=== PATIENT | male | born 1950 | race Caucasian/White ===

== ENCOUNTER 2016-10-31 13:19 | Emergency (ER) | payer MEDICAID, OTHER ==
[~2016-10-31] VITALS: Ht 167.6 cm; Wt 87.0 kg
[2016-10-31 13:23] VITALS: Ht 167.6 cm; Wt 87.0 kg
[2016-10-31] MEDS ORDERED: KETOROLAC 30 MG INJ IM STA (14:29)
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
[2016-10-31] MEDS ORDERED: ACETAMINOPHEN 325 MG TAB PO ONE (15:00)
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
[2016-10-31] MEDS ORDERED: NAPR-260 PO (15:34)
[2016-10-31 16:20] VITALS: BP 122/78; PULSE 80; RESP 18; TEMP 97.8
== END 2016-10-31 16:00 | disposition home or self-care (01) ==
LOC: FTE 13:19
DX: S29.001A Unspecified injury of muscle and tendon of front wall of thorax, initial encounter (principal); I10 Essential (primary) hypertension; R51 Headache; V49.49XA Driver injured in collision with other motor vehicles in traffic accident, initial encounter
CPT/HCPCS: 70450; 71010; 72125; 93005; Z7502; Z7610

== ENCOUNTER 2018-07-20 15:35 | Inpatient (IN) | payer BC, OTHER ==
[~2018-07-20] VITALS: Ht 167.6 cm; Wt 84.0 kg
[~2018-07-20 15:35] MED LIST: NAPR-985 PO
--- NOTE | 2018-07-20 17:46 | ERD ---
ER Documentation Chief Complaint Chief Complaint pressure like pain @ the left chest area x 3 days non radiating HPI This is a 68-year-old man complaining of intermittent pressure-like chest discomfort usually lasting about 15 minutes intermittently throughout the day x3 days with associated dizziness and some nausea. He denies prior episodes of chest pain, he has had no shortness of breath, no fevers or chills, no loss of consciousness, no anxiety, no headache or blurry vision. ROS All systems reviewed and are negative except as per history of present illness. Medications Home Meds Active Scripts Naproxen* (Naprosyn*) 500 Mg Tablet, 500 MG PO BID PRN for PAIN AND/OR I NFLAMMATION, #30 TAB Prov:MAGGI MARI PA-C 10/31/16 Allergies Allergies: Coded Allergies: No Known Allergy (Unverified , 10/31/16) PMhx/Soc Hypertension History of Surgery: No Anesthesia Reaction: No Hx Neurological Disorder: No Hx Respiratory Disorders: No Hx Cardiac Disorders: No Hx Psychiatric Problems: No Hx Miscellaneous Medical Probl: No Hx Alcohol Use: No Hx Substance Use: No Hx Tobacco Use: No FmHx Family History: No diabetes Physical Exam Vitals Vital Signs Date Temp Pulse Resp B/P (MAP) Pulse Ox O2 O2 Flow FiO2 Time Delivery Rate 07/20/18 61 16 141/101 100 Room Air 18:38 (114) 07/20/18 97.1 78 19 150/98 98 15:37 (115) Physical Exam GENERAL: Well-developed, well-nourished, well-hydrated, in no apparent distress, looks nontoxic in appearance NEURO: Alert and oriented 3, cranial nerves II through XII intact bilaterally, pupils equal round reactive to light, no focal deficits or facial asymmetry, sensation intact distally Strength 5/5 in upper and lower extremities bilaterally CARDIAC: Regular rate and rhythm, no murmurs rubs or gallops LUNGS: Clear bilaterally no wheezing crackles or stridor ABDOMEN: Soft nontender, no guarding, no rigidity, no rebound, no psoas sign no obturator sign. Normoactive bowel sounds SKIN: Warm and dry to touch, no abrasions, contusions, or hematomas, no lacerations, no ecchymosis, no target lesions, and without ulcers EXTREMITIES: No clubbing cyanosis or edema, calves are bilaterally symmetrical, no Homans sign, no popliteal cord sign. Distal pulses equal and bilateral PSYCH: Normal affect without agitation or irritability Result Diagram: 07/20/18181707/20/181817 Results 24 hrs Laboratory Tests Test 07/20/18 18:18 White Blood Count 7.8 10^3/ul Red Blood Count 5.04 10^6/ul Hemoglobin 15.6 g/dl Hematocrit 47.0 % Mean Corpuscular Volume 93.3 fl Mean Corpuscular Hemoglobin 31.0 pg Mean Corpuscular Hemoglobin Concent 33.2 g/dl Red Cell Distribution Width 12.3 % Platelet Count 266 10^3/UL Mean Platelet Volume 8.4 fl Immature Granulocytes % 0.600 % Neutrophils % 55.7 % Lymphocytes % 31.0 % Monocytes % 10.8 % Eosinophils % 1.4 % Basophils % 0.5 % Nucleated Red Blood Cells % 0.0 /100WBC Immature Granulocytes # 0.050 10^3/ul Neutrophils # 4.3 10^3/ul Lymphocytes # 2.4 10^3/ul Monocytes # 0.8 10^3/ul Eosinophils # 0.1 10^3/ul Basophils # 0.0 10^3/ul Nucleated Red Blood Cells # 0.0 10^3/ul Sodium Level 141 mmol/L Potassium Level 4.6 mmol/L Chloride Level 107 mmol/L Carbon Dioxide Level 25 mmol/L Anion Gap 9 Blood Urea Nitrogen 17 mg/dl Creatinine 1.23 mg/dl Est Glomerular Filtrat Rate mL/min 59 mL/min Glucose Level 92 mg/dl Calcium Level 9.1 mg/dl Total Bilirubin 0.2 mg/dl Direct Bilirubin 0.00 mg/dl Indirect Bilirubin 0.2 mg/dl Aspartate Amino Transf (AST/SGOT) 18 IU/L Alanine Aminotransferase (ALT/SGPT) 21 IU/L Alkaline Phosphatase 70 IU/L Troponin I < 0.012 ng/ml Total Protein 8.2 g/dl Albumin 4.4 g/dl Globulin 3.80 g/dl Albumin/Globulin Ratio 1.15 Lipase 165 U/L Current Medications Medications Dose Sig/Mariana Start Time Status Last (Trade) Ordered Route PRN Stop Time Admin Dose Reason Admin Sodium 500 ml @ Q1H STAT 07/20/18 DC 07/20/18 Chloride 500 mls/hr IV 17:55 18:32 07/20/18 18:54 Ketorolac 15 mg ONCE STAT 07/20/18 DC 07/20/18 Tromethamine IV 17:55 18:33 (Toradol) 07/20/18 17:56 Aspirin 324 mg ONCE ONCE 07/20/18 DC 07/20/18 (Aspirin) PO 18:00 18:33 07/20/18 18:01 Procedures/MDM IV line was established patient was placed on ekg monitor tech rhythm strip revealed a sinus rhythm at about 70 bpm with upright P and T waves. Patient was afebrile EKG performed, read by me: 73 bpm, normal sinus rhythm, normal axis, no acute ST segment changes, narrow QRS complex, with good R-wave progression in precordial leads. I administered 500 cc normal saline IV, Toradol 15 mg IV x1, and aspirin 324 mg p.o. for cardioprotective measures. Chest X-ray 1V Interpreted by me: Soft Tissue: No acute abnormalities Bones: No acute abnormalities Mediastinum/Cardiac Silhouette/Lungs: No acute abnormalities CBC and electrolytes are normal, liver function tests normal, troponin negative Patient will be admitted to telemetry setting for continued medical management cardiology consultation. Departure Diagnosis: Primary Impression: Chest pain Chest pain type: unspecified Qualified Codes: R07.9 - Chest pain, unspecified Condition: KINJAL Zheng MD July 20, 2018 17:46
[2018-07-20] MEDS ORDERED: KETOROLAC 15 MG INJ IV STA (17:55)
[2018-07-20] MEDS ORDERED: SOD CHLORIDE 0.9% 500 ML IV STA (17:55)
[2018-07-20] MEDS ORDERED: ASPIRIN 81 MG TAB PO ONE (18:00)
[2018-07-20] MEDS ORDERED: hydrALAzine 20 MG INJ IV PRN (19:30)
[2018-07-20] MEDS ORDERED: HYDROCODONE/APAP (5/325) TAB PO PRN (19:30)
[2018-07-20] MEDS ORDERED: NACL 0.9% 3 ML SYG IV SCH (19:30)
[2018-07-20] MEDS ORDERED: ALBUTEROL/IPRATROPIUM (NEB) 3 ML AMP HHN PRN (19:30)
[2018-07-20] MEDS ORDERED: MAGNESIUM HYDROXIDE 30ML CUP PO PRN (19:30)
[2018-07-20] MEDS ORDERED: morphine 2 MG INJ IV PRN (19:30)
[2018-07-20] MEDS ORDERED: NITROGLYCERIN (SL) 0.4 MG TAB SL PRN (19:30)
[2018-07-20] MEDS ORDERED: ACETAMINOPHEN 325 MG TAB PO PRN (19:30)
[2018-07-20] MEDS ORDERED: DOCUSATE SODIUM 100 MG CAP PO PRN (19:30)
[2018-07-20] MEDS ORDERED: LORAZEPAM 2 MG INJ IV PRN (19:30)
[2018-07-20] MEDS ORDERED: ONDANSETRON 4 MG INJ IV PRN (19:30)
--- NOTE | 2018-07-20 19:53 | HP ---
DATE OF ADMISSION: 07/20/2018 IDENTIFICATION: This is a 68-year-old male. CHIEF COMPLAINT: Chest pain. HISTORY OF PRESENT ILLNESS: A 68-year-old male with past medical history of hypertension who has bee n having left chest pain, substernal in nature actually radiating slightly to the midsternal area occ urring for the last 3 days. No nausea, vomiting, no fever or chills. He describes a pressure-like, substernal in nature. No prior history of any chest pain. No prior history of any stroke or heart a ttack. Denies any diarrhea or constipation. No fever or chills. No nausea, vomiting. No headaches or dizziness. No loss of consciousness. When he came in today, he was found with blood pressure of 164/98. First troponin is negative. PAST MEDICAL HISTORY: As stated above. ALLERGIES: NO KNOWN DRUG ALLERGIES. HOME MEDICATIONS: Apparently naproxen 500 mg p.o. b.i.d. He does state he takes blood pressure medi cine at home. He does not remember the name of it. PAST SURGICAL HISTORY: He had appendix surgery in the past. FAMILY HISTORY: Positive for stroke. Both mother had a stroke and father had a stroke, SOCIAL HISTORY: Negative for smoking, drinking or IV drug abuse. PHYSICAL EXAMINATION: VITAL SIGNS: Today, T-max 97.1, pulse 78 to 61, respirations 16 to 19, blood pressure 168 to 141 sys tolic over 98 to 101 diastolic, satting at 100% room air. GENERAL: The patient is lying in bed, answering questions appropriately, in no acute distress. HEENT: Pupils are equal, round, react to light. Extraocular muscles are intact. NECK: Supple. No thyromegaly. LUNGS: Slight crackles heard at the bases bilaterally. No wheezes. CARDIOVASCULAR: S1, S2 heard. No rubs or gallops. ABDOMEN: Soft, nontender, nondistended. Normal bowel sounds. No rebound or guarding. MUSCULOSKELETAL: Trace pitting edema to bilateral lower extremities to the ankles. NEUROLOGIC: No focal deficits. LABORATORIES: Comprehensive metabolic panel is normal. Troponin is negative x1. CBC is normal. DIAGNOSTIC DATA: Chest x-ray showed mild left basilar linear atelectatic changes. ASSESSMENT AND PLAN: A 68-year-old male coming in chest pain occurring for the last 3 days. Rule ou t acute coronary syndrome versus other source. 1. Chest pain. Rule out acute coronary syndrome versus musculoskeletal source. Admit the patient t o telemetry. Check troponins q.6 hours x2 more. Put him on aspirin, morphine, nitroglycerin and oxy gen. Check a 2D echocardiogram as well. Check TSH, A1c, lipid panel. 2. Hypertension. Again, blood pressure in the slightly elevated range. We will continue to monitor for now. Try to get patient's home medications for blood pressure that he takes at home. Continue hydralazine IV p.r.n. as well. 3. Deep venous thrombosis prophylaxis. Heparin subcutaneously. Dictated By: AYUSH NG Conf#: [id number] DID#: [id number]
[2018-07-20] MEDS: FUROSEMIDE 20 MG INJ IV SCH (20:33)
[2018-07-20 20:55] VITALS: BP 168/92; PULSE 67; RESP 18; Ht 167.6 cm; Wt 84.0 kg
[2018-07-20 21:25] VITALS: PULSE 72
[2018-07-20] MEDS: HEPARIN 5,000 UNIT/1 ML VIAL SC SCH (21:59)
[2018-07-21] VITALS (9 sets, daily range): BP systolic 121–132; BP diastolic 73–88; PULSE 63–73; RESP 18–20
[2018-07-21] MEDS ORDERED: ASPIRIN (EC) 325 MG TAB PO SCH (09:00)
[2018-07-21] MEDS: FUROSEMIDE 20 MG INJ IV SCH (09:05)
[2018-07-21] MEDS: HEPARIN 5,000 UNIT/1 ML VIAL SC SCH (09:22)
--- NOTE | 2018-07-21 10:01 | PDOCDIS ---
Discharge Instructions CONDITION [id number] Patient Condition: [id number] Stable HOME CARE INSTRUCTIONS: [id number] Diet Instructions: [id number] Low Fat /Cholesterol ACTIVITY: [id number] Activity Restrictions: [id number] Slowly Increase Activity Rest between Activity Avoid heavy lifting FOLLOW UP/APPOINTMENTS Follow-up Plan Please take your medications as prescribed, see your doctor in the clinic in the next 1 week. Please follow-up with the hospital phone number you will be provided to get the final results of your echocardiogram as well. AYUSH BONNER July 21, 2018 10:01
--- NOTE | 2018-07-21 10:04 | DS ---
Date/Time of Note Date/Time of Note DATE: 07/21/18 TIME: 10:02 Discharge Summary Admission/Discharge Info Admit Date/Time July 20, 2018 at 19:23 Discharge Date/Time Discharge Diagnosis 1. Chest pain. Ruled out acute coronary syndrome-echocardiogram performed, results pending 2. Hypertension-improved Patient Condition: Stable Hx of Present Illness 68-year-old male with past medical history of hypertension who has been having left chest pain, substernal in nature actually radiating slightly to the midsternal area occurring for the last 3 days. No nausea, vomiting, no fever or chills. He describes a pressure-like, substernal in nature. No prior history of any chest pain. No prior history of any stroke or heart attack. Denies any diarrhea or constipation. No fever or chills. No nausea, vomiting. No headaches or dizziness. No loss of consciousness. When he came in today, he was found with blood pressure of 164/98. First troponin is negative. Hospital Course Patient was admitted and he ruled out for acute coronary syndrome. His blood pressure improved with appropriate medications given while here in the hospital. His A1c was found to be 5.8, and although his triglycerides are slightly high, his overall cholesterol panel was within normal limits. He was recommended for diet modification to help control his slightly high triglyceride levels. Patient was able to ambulate, tolerated p.o. diet. Vital signs were stable on day of discharge. He had an echocardiogram performed results are still pending by the time of this discharge, but patient will follow up with that to get the results of that and will be discharged home today in improved condition. See below for full list of discharge medications. Home Meds Active Scripts Naproxen* (Naprosyn*) 500 Mg Tablet, 500 MG PO BID PRN for PAIN AND/OR INFLAMM ATION, #30 TAB Prov:MAGGI MARI PA-C 10/31/16 Follow-up Plan Please take your medications as prescribed, see your doctor in the clinic in the next 1 week. Please follow-up with the hospital phone number you will be provided to get the final results of your echocardiogram as well. Primary Care Provider Care Physician No Primary Time spent on discharge: > 30 minutes Pending Labs Laboratory Tests Test 07/20/18 18:18 07/20/18 19:50 07/21/18 01:12 07/21/18 05:17 White Blood 7.8 7.1 Count 10^3/ul (4.8-10 10^3/ul (4.8-1 .8) 0.8) Red Blood 5.04 4.92 Count 10^6/ul (4.70-6 10^6/ul (4.70- .10) 6.10) Hemoglobin 15.6 15.1 g/dl (14.0-18.0 g/dl (14.0-18. ) 0) Hematocrit 47.0 45.5 % (42.0-52.0) % (42.0-52.0) Mean 93.3 92.5 Corpuscular fl (82.0-101.0) fl (82.0-101.0 Volume ) Mean 31.0 30.7 Corpuscular pg (29.0-33.0) pg (29.0-33.0) Hemoglobin Mean 33.2 33.2 Corpuscular g/dl (32.0-37.0 g/dl (32.0-37. Hemoglobin Conc ) 0) ent Red Cell 12.3 12.4 Distribution % (11.5-14.5) % (11.5-14.5) Width Platelet Count 266 270 10^3/UL (140-41 10^3/UL (140-4 5) 15) Mean Platelet 8.4 8.4 Volume fl (7.4-10.4) fl (7.4-10.4) Immature 0.600 0.600 Granulocytes % % (0.001-0.429) % (0.001-0.429 ) Neutrophils % 55.7 58.7 % (39.0-77.0) % (39.0-77.0) Lymphocytes % 31.0 28.7 % (15.0-51.0) % (15.0-51.0) Monocytes % 10.8 9.7 % (0.0-11.0) % (0.0-11.0) Eosinophils % 1.4 % (0.0-7.0) 2.0 % (0.0-7.0) Basophils % 0.5 % (0.0-2.0) 0.3 % (0.0-2.0) Nucleated Red 0.0 0.0 Blood Cells % /100WBC (0.0-0. /100WBC (0.0-0 0) .0) Immature 0.050 0.040 Granulocytes # 10^3/ul (0.0-0. 10^3/ul (0.0-0 031) .031) Neutrophils # 4.3 4.2 10^3/ul (1.6-7. 10^3/ul (1.6-7 5) .5) Lymphocytes # 2.4 2.0 10^3/ul (0.8-2. 10^3/ul (0.8-2 9) .9) Monocytes # 0.8 0.7 10^3/ul (0.3-0. 10^3/ul (0.3-0 9) .9) Eosinophils # 0.1 0.1 10^3/ul (0.0-0. 10^3/ul (0.0-0 5) .5) Basophils # 0.0 0.0 10^3/ul (0.0-0. 10^3/ul (0.0-0 1) .1) Nucleated Red 0.0 0.0 Blood Cells # 10^3/ul (0.0-0. 10^3/ul (0.0-0 0) .0) Sodium Level 141 142 mmol/L (135-144 mmol/L (135-14 ) 4) Potassium 4.6 4.3 Level mmol/L (3.5-5.1 mmol/L (3.5-5. ) 1) Chloride Level 107 108 mmol/L (97-110) mmol/L (97-110 ) Carbon Dioxide 25 24 Level mmol/L (21-31) mmol/L (21-31) Anion Gap 9 (5-13) 10 (5-13) Blood Urea 17 mg/dl (7-20) 19 Nitrogen mg/dl (7-20) Creatinine 1.23 1.24 mg/dl (0.61-1.2 mg/dl (0.61-1. 4) 24) Est Glomerular 59 mL/min (>60) 58 Filtrat mL/min (>60) Rate mL/min Glucose Level 92 90 mg/dl (70-220) mg/dl (70-220) Calcium Level 9.1 8.9 mg/dl (8.4-10.2 mg/dl (8.4-10. ) 2) Total 0.2 Bilirubin mg/dl (0.2-1.3) Direct 0.00 Bilirubin mg/dl (0.00-0.2 0) Indirect 0.2 Bilirubin mg/dl (0-1.1) Aspartate Amino 18 IU/L (15-46) Transf (AST/SGO T) Alanine 21 IU/L (13-69) Aminotransferas e (ALT/SGPT) Alkaline 70 Phosphatase IU/L (42-121) Troponin I < 0.012 < 0.012 < 0.012 ng/ml (0.000-0. ng/ml (0.000-0 ng/ml (0.000-0 120) .120) .120) B-Type 32 Natriuretic PG/ML (0-125) Peptide Total Protein 8.2 g/dl (6.1-8.1) Albumin 4.4 g/dl (3.3-4.9) Globulin 3.80 g/dl (1.3-3.2) Albumin/Globuli 1.15 n Ratio Lipase 165 U/L (23-300) Free Thyroxine 1.54 ng/dl (0.78-2.4 4) Creatine 46 45 Kinase IU/L (23-200) IU/L (23-200) Creatine Kinase 0.9 1.0 Index Creatinine 0.43 0.46 Kinase MB ng/ml (0.0-2.4 ng/ml (0.0-2.4 (Mass) ) ) Hemoglobin A1c 5.8 % (0-5.9) Phosphorus 3.5 Level mg/dl (2.5-4.9 ) Magnesium 2.1 Level mg/dl (1.7-2.5 ) Triglycerides 186 Level mg/dl (0-149) Cholesterol 157 Level mg/dl (100-200 ) LDL 95 mg/dl Cholesterol, Calculated HDL 25 Cholesterol mg/dl (30-78) Cholesterol/HDL 6.2 RATIO Ratio Thyroid 2.880 Stimulating MIU/L (0.465-4 Hormone (TSH) .680) AYUSH BONNER July 21, 2018 10:04
--- NOTE | 2018-07-22 14:05 | RADRPT ---
Echocardiogram Report Patient Name: JOANNE SOTOPatient ID: [id number] : 1950 (68y 3m)Study Date: 07/21/2018 12:53:52 PM Gender: MAccession #: [id number] Tech: NABEEL Location: Ref.Physician: AYUSH BONNER Height(Cm): 165 BSA: 1.91Weight(Kg): 79.8 Quality: AdequateAccount #: Procedures: Echocardiographic Report: Transthoracic echocardiogram with 2D, M-Mode, and Doppler examination, poor subcostal images. Indications: Chest Pain. Measurements: 2D/M Mode Doppler Measurement Value Normal Range Measurement Value Normal Range LVIDd 2D 2.8 [ 4.2 - 5.8 ] cm AV Peak Vinay 1.2 [ 100.0 - 170.0 ] cm/se c LVIDs 2D 1.9 [ 2.5 - 4.0 ] cm AV Peak PG 6.0 [ 2.0 - 9.0 ] mmHg LVPWd 2D 1.1 [ 0.6 - 1.0 ] cm LVOT Peak Vinay 0.8 [ 70.0 - 110.0 ] cm/sec IVSd 2D 1.1 [ 0.6 - 1.0 ] cm LVOT Peak PG 2.0 [ 2.0 - 6.0 ] mmHg AoR Diam 2D 3.3 [ 2.6 - 3.4 ] cm MV E Peak Vinay 0.6 [ 60.0 - 130.0 ] cm/sec EDV 2D 28.5 [ 62.0 - 150.0 ] ml MV A Peak Vinay 0.7 [ 100.0 - 120.0 ] cm/se c ESV 2D 11.5 [ 21.0 - 61.0 ] ml MV E/A 0.8 [ 0.8 - 1.5 ] ratio EF 2D 59.6 [ 52.0 - 72.0 ] percent MV PHT 101.0 [ 20.0 - 100.0 ] msec LA Dimen 2D 3.7 [ 3.0 - 4.0 ] cm MV Decel Time 343 [ 104 - 258 ] msec MV Decel Galax 2 Lat E` Vinay 0.1 [ 10.0 - 15.0 ] cm/sec Lateral E/E` 8.4 [ 1.0 - 2.0 ] ratio Med E` Vinay 0.0 cm/sec MV E/A 0.8 [ 0.8 - 1.5 ] ratio MVA PHT 2.2 [ 2.0 - 4.0 ] cm2 TR Peak Vinay 2.2 [ 100.0 - 280.0 ] cm/se c TR Peak PG 19.0 mmHg PV Peak Vinay 1.1 [ 40.0 - 80.0 ] cm/sec PV Peak PG 5.0 mmHg RVSP 29.0 [ 10.0 - 36.0 ] mmHg RA Pressure 10.0 mmHg Findings: Left Ventricle: Normal left ventricular systolic function. Normal left ventricular cavity size. Mild concentric left ventricular hypertrophy. Ejection fraction is visually estimated at 60 %. Tissue Doppler/Mitral Doppler indices are consistent with impaired relaxation (Stage I diastolic dysfunction). E/E'= 13. Right Ventricle: Normal right ventricular size. Left Atrium: The left atrium is normal in size. Right Atrium: The right atrium is normal in size. Atrial Septum: Normal atrial septum. Mitral Valve: Normal appearance and function of the mitral valve with trace physiologic regurgitation. Aortic Valve: No significant aortic stenosis or insufficiency. Normal trileaflet aortic valve structure. Tricuspid Valve: Normal appearance and function of the tricuspid valve with trace physiologic regurgitation. Estimated peak PA systolic pressure 29 mmHg. Pulmonic Valve: Normal pulmonic valve appearance. There is trace pulmonic regurgitation. Pericardium: Normal pericardium with no significant pericardial effusion. Aorta: Normal aortic root. IVC: The IVC is not well visualized. Pulmonary Artery: Normal pulmonary artery size. Conclusions: Normal left ventricular systolic function. Normal left ventricular cavity size. Mild concentric left ventricular hypertrophy. Ejection fraction is visually estimated at 60 %. Tissue Doppler/Mitral Doppler indices are consistent with impaired relaxation (Stage I diastolic dysfunction). E/E'= 13. Normal appearance and function of the mitral valve with trace physiologic regurgitation. No significant aortic stenosis or insufficiency. Normal trileaflet aortic valve structure. Normal appearance and function of the tricuspid valve with trace physiologic regurgitation. Estimated peak PA systolic pressure 29 mmHg. g. Electronically Signed By: Boby Mckinney 2018-07-22 14:04:40 PDT
== END 2018-07-21 16:56 | disposition home or self-care (01) | DRG 313 ==
LOC: E/R 15:35 → SUATTDRO 19:16 → 6WM 19:23
PROVIDERS: ADMIT Internal Medicine; ATTEND Hospitalist
DX: R07.9 Chest pain, unspecified (principal); I10 Essential (primary) hypertension
CPT/HCPCS: 71045; 80048; 80053; 80061; 82550; 82553; 83036; 83690; 83735; 83880; 84100; 84439; 84443; 84484; 85025; 93005; 93306; 96372; J1644; J1885; J1940; J7040

== ENCOUNTER 2018-08-01 18:55 | Emergency (ER) | payer BC ==
[~2018-08-01] VITALS: Ht 167.6 cm; Wt 70.0 kg
[2018-08-01 19:22] VITALS: Ht 167.6 cm; Wt 70.0 kg
--- NOTE | 2018-08-01 20:49 | ERD ---
ER Documentation Chief Complaint Chief Complaint SENT BY [facility] FOR ADMISSION, PT REPORTS MILD CP NOW HPI 68-year-old male presenting with paperwork stating that he was told to come here for admission. In actuality, patient received paperwork authorizing his recent hospitalization on July 20. He thought that meant that he should come to the ER for admission. However he does complain of left-sided chest pain that is persistent for the past 1 month. He was admitted for ACS work-up. He was ruled out and told to follow-up with his PCP. His pain is nonexertional, with no alleviating or exacerbating factors. He describes it as pressure-like in the left chest, nonradiating, without any associated symptoms. Currently he is denying any pain. ROS All systems reviewed and are negative except as per history of present illness. Medications Home Meds Active Scripts Naproxen* (Naprosyn*) 500 Mg Tablet, 500 MG PO BID PRN for PAIN AND/OR INFLAMMATION, #30 TAB Prov:MAGGI MARI PA-C 10/31/16 Allergies Allergies: Coded Allergies: No Known Allergy (Unverified , 10/31/16) PMhx/Soc History of Surgery: Yes Anesthesia Reaction: No Hx Neurological Disorder: No Hx Respiratory Disorders: No Hx Cardiac Disorders: Yes Hx Psychiatric Problems: No Hx Miscellaneous Medical Probl: No Hx Alcohol Use: No Hx Substance Use: No Hx Tobacco Use: No Smoking Status: Never smoker Physical Exam Vitals Vital Signs Date Temp Pulse Resp B/P (MAP) Pulse Ox O2 O2 Flow FiO2 Time Delivery Rate 08/01/18 98.6 71 16 131/79 96 Room Air 22:00 (96) 08/01/18 70 18 145/94 96 Room Air 21:30 (111) 08/01/18 73 20 131/89 96 Room Air 21:00 (103) 08/01/18 80 17 123/77 98 Room Air 20:30 (92) 08/01/18 97.5 86 18 133/66 96 19:22 (88) Physical Exam Const: No acute distress Head: Atraumatic Eyes: Normal Conjunctiva ENT: Normal External Ears, Nose and Mouth. Neck: Full range of motion. No meningismus. Chest wall: nontender to palpation Resp: Clear to auscultation bilaterally Cardio: Regular rate and rhythm, no murmurs. 2+ distal pulses in all 4 extremities Abd: Soft, non tender, non distended. Normal bowel sounds Skin: No petechiae or rashes Back: No midline or flank tenderness Ext: No cyanosis, or edema. No calf tenderness Neur: Awake and alert Psych: Normal Mood and Affect Result Diagram: 08/01/18204808/01/182049 Results 24 hrs Laboratory Tests Test 08/01/18 20:49 08/01/18 20:50 White Blood Count 6.7 10^3/ul Red Blood Count 4.57 10^6/ul Hemoglobin 14.2 g/dl Hematocrit 42.6 % Mean Corpuscular Volume 93.2 fl Mean Corpuscular Hemoglobin 31.1 pg Mean Corpuscular Hemoglobin Concent 33.3 g/dl Red Cell Distribution Width 12.5 % Platelet Count 249 10^3/UL Mean Platelet Volume 8.2 fl Immature Granulocytes % 0.600 % Neutrophils % 50.5 % Lymphocytes % 34.6 % Monocytes % 12.5 % Eosinophils % 1.5 % Basophils % 0.3 % Nucleated Red Blood Cells % 0.0 /100WBC Immature Granulocytes # 0.040 10^3/ul Neutrophils # 3.4 10^3/ul Lymphocytes # 2.3 10^3/ul Monocytes # 0.8 10^3/ul Eosinophils # 0.1 10^3/ul Basophils # 0.0 10^3/ul Nucleated Red Blood Cells # 0.0 10^3/ul Sodium Level 138 mmol/L Potassium Level 4.6 mmol/L Chloride Level 107 mmol/L Carbon Dioxide Level 24 mmol/L Anion Gap 7 Blood Urea Nitrogen 27 mg/dl Creatinine 1.37 mg/dl Est Glomerular Filtrat Rate mL/min 52 mL/min Glucose Level 97 mg/dl Calcium Level 8.6 mg/dl Troponin I < 0.012 ng/ml Procedures/MDM EMERGENT LABS AND DIAGNOSTIC STUDIES: Lab Results above were reviewed and interpreted by me. CBC: no anemia or evidence of infection BMP: Elevated BUN and creatinine, likely mild renal insufficiency.no e/o c linically significant electrolyte abnormality severe acidosis, alkalosis, diabetic ketoacidosis Troponin within normal limits, not indicative of cardiac ischemia 12-lead EKG was interpreted by Teresa Mckeon MD: Normal Sinus Rhythm Normal axis Normal intervals No acute ST or T wave changes suggestive of acute ischemia or STEMI. Initial Nursing notes reviewed. Previous Medical Records requested via the Electronic Health Record. EMERGENCY DEPARTMENT COURSE / MEDICAL DECISION MAKING: The patient presents with chest pain. Vitals are stable. I considered pulmonary embolism, aortic dissection, pneumothorax among other diagnoses. Evaluation for acute coronary syndrome was performed. The HEART score was utilized for risk stratification and found to be 2. Based on this evaluation the patient's risk of major adverse cardiac events is <1%. Shared decision making occurred with patient and the decision has been made to discharge the patient for outpatient evaluation. Patient instructed to arrange follow up with PCP in the next 2 days and return to the ED for any new or worsening symptoms. Patient's blood pressure was elevated (>120/80) but appears stable without evidence of hypertensive emergency or urgency. The patient was counseled about the risks of hypertension and urged to pursue outpatient monitoring and therapy within a week with their primary care physician. Departure Diagnosis: Primary Impression: Chest pain Chest pain type: unspecified Qualified Codes: R07.9 - Chest pain, unspecified Condition: Stable MECHELLE MCKEON MD August 01, 2018 20:49
[2018-08-01 22:00] VITALS: BP 131/79; PULSE 71; RESP 16
== END 2018-08-01 22:18 | disposition home or self-care (01) ==
LOC: E/R 18:55
DX: R07.9 Chest pain, unspecified (principal)
CPT/HCPCS: 36415; 80048; 84484; 85025; 93005